=== PATIENT | male | born 1990 | race Caucasian/White ===

== ENCOUNTER → 2018-11-29 | Outpatient (REF) | payer BC ==
[2018-12-01 08:06] LABS: LDL DIRECT 67 mg/dL (0-99)
== END ==
LOC: M LAB REF 16:46
PROVIDERS: ATTEND Internal Medicine
DX: E78.00 Pure hypercholesterolemia, unspecified (principal)

== ENCOUNTER → 2019-09-15 | Outpatient (CLI) | payer BC ==
--- NOTE | 2019-09-19 08:55 | SLEEPHOME ---
DATE OF STUDY: 09/15/2019 ORDERED BY: JOEY Turner Diagnostic home sleep testing was performed due to concern for the obstructive sleep apnea syndrome in this patient with history of excessive somnolence and nonrestorative sleep. For testing a nocturnal T3 respiratory monitoring device was used. Continuous record was made of pulse, oxygen saturation, airflow, chest and abdominal strain, and body position. 9 hours and 59 minutes of data were reviewed. There were 6 hours and 48 minutes marked as time in bed. During the interval marked time in bed there were 51 respiratory events identified of 10 seconds in duration or greater for a respiratory event index of 7.5. The events were primarily obstructive. Baseline pulse rate 73, pulse rate ranged 56-104. Baseline saturation 93%, saturations fell to 88%. Testing was performed in both the supine and nonsupine positions. IMPRESSION: Abnormal home sleep testing with repetitive respiratory events and oxygen desaturations to 88% with a respiratory event index of 7.5 is consistent with the obstructive sleep apnea syndrome. RECOMMENDATIONS: The patient should be encouraged to undergo formal sleep evaluation. cc: Elías Caldwell Jr, MD
== END ==
LOC: M SLEEP HO 11:08
PROVIDERS: ATTEND Nurse Practitioner Family
DX: G47.33 Obstructive sleep apnea (adult) (pediatric) (principal)

== ENCOUNTER 2020-05-17 14:43 | Emergency (ER) | payer BC ==
[~2020-05-17] VITALS: Ht 185.4 cm; Wt 134.5 kg
[2020-05-17 14:44] VITALS: BP 142/94
[2020-05-17] MEDS ORDERED: LIDOCAINE 2% MDV 20ML VIAL As Ordered ONE (15:04)
[2020-05-17] MEDS ORDERED: LIDOCAINE 2% MDV 20ML VIAL SC ONE (15:15)
== END 2020-05-17 15:30 | disposition home or self-care (01) ==
LOC: M ED 14:43
DX: S61.211A Laceration without foreign body of left index finger without damage to nail, initial encounter (principal); Y92.9 Unspecified place or not applicable; Y93.9 Activity, unspecified; Y99.9 Unspecified external cause status

== ENCOUNTER → 2020-07-29 | Outpatient (REF) | payer BC ==
[2020-07-31 08:09] LABS: LDL DIRECT 146 mg/dL (0-99)
== END ==
LOC: M LAB REF 16:34
PROVIDERS: ATTEND Internal Medicine
DX: E78.00 Pure hypercholesterolemia, unspecified (principal)

== ENCOUNTER 2020-08-21 16:41 | Emergency (ER) | payer BC ==
[~2020-08-21] VITALS: Ht 188 cm; Wt 143.2 kg
[2020-08-21 16:41] VITALS: BP 157/101
[2020-08-21] MEDS ORDERED: BUPR150T3 (16:48)
[2020-08-21] MEDS ORDERED: MORPHINE 10 MG/ML 1ML VIAL (J2270) IM ONE (17:15)
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
[2020-08-21] MEDS ORDERED: MORPHINE 4 MG/ML 1ML VIAL/SYRINGE (J2270) IM ONE (18:30)
[2020-08-21] MEDS ORDERED: HYDR-3713 PO (18:56)
--- NOTE | 2020-08-21 19:19 | REP ---
INDICATION: post reduction first MC COMPARISON: None. TECHNIQUE: AP, lateral views of the right hand FINDINGS: Patient is status post satisfactory reduction at the 1st carpometacarpal joint. No obvious acute fracture is identified. IMPRESSION: Status post satisfactory reduction at the 1st carpometacarpal joint. <Electronically signed by Khoa Corbin > 08/21/20 [id number]
== END 2020-08-21 19:18 | disposition home or self-care (01) ==
LOC: M ED 16:41
DX: Z04.1 Encounter for examination and observation following transport accident (principal); S63.064A Dislocation of metacarpal (bone), proximal end of right hand, initial encounter; V49.40XA Driver injured in collision with unspecified motor vehicles in traffic accident, initial encounter; Y92.410 Unspecified street and highway as the place of occurrence of the external cause; Y93.89 Activity, other specified; Y99.8 Other external cause status; Z79.899 Other long term (current) drug therapy
CPT/HCPCS: 26641; 73110; 73120; 73130; 96372; 99282; J2270

== ENCOUNTER → 2021-12-31 | Outpatient (CLI) | payer OTHER ==
[~2021-12-31] MED LIST: BUPR150T12; HYDR-3713 PO
== END ==
LOC: M SLEEP HO 12:24
PROVIDERS: ATTEND Nurse Practitioner Family
DX: G47.9 Sleep disorder, unspecified (principal)

== ENCOUNTER → 2022-03-06 | Outpatient (CLI) | payer OTHER | LOC: M SLEEP 20:00 | PROVIDERS: ATTEND Nurse Practitioner Family | DX: G47.33 Obstructive sleep apnea (adult) (pediatric) (principal) ==

== ENCOUNTER → 2022-05-07 | Outpatient (CLI) | payer OTHER | LOC: M SLEEP 20:00 | PROVIDERS: ATTEND Nurse Practitioner Family | DX: G47.33 Obstructive sleep apnea (adult) (pediatric) (principal) ==

== ENCOUNTER → 2023-06-14 | Outpatient (REF) | payer OTHER ==
[2023-06-14 20:28] LABS: BASO # 0.1 10^3/uL (0.0-0.2); BASO % 0.7 % (0.0-1.0); EOS # 0.1 10^3/uL (0.0-0.5); EOS % 0.9 % (0.0-3.0); HEMATOCRIT 46.7 % (42.0-52.0); HEMOGLOBIN 15.4 g/dl (13.5-17.5); LYMPH # 2.3 10^3/uL (1.5-5.0); LYMPH % 25.4 % (24.0-44.0); MEAN CORPUSCULAR HEMOGLOBIN 28.9 pg (27.0-33.0); MEAN CORPUSCULAR VOLUME 87.6 fl (80.0-96.0); MONO # 1.1 10^3/uL (0.0-0.8); NEUTROPHILS # 5.5 10^3/uL (1.5-8.5); NEUTROPHILS % 60.8 % (36.0-66.0); PLATELET COUNT, AUTOMATED 195 10^3/uL (150-450); RED BLOOD COUNT 5.33 10^6/uL (4.30-6.10)
[2023-06-14 21:00] LABS: LIPASE 32 U/L (12-53)
[2023-06-14 21:03] LABS: ALBUMIN 4.2 G/DL (3.2-5.2); ALKALINE PHOSPHATASE 70 U/L (46-116); ALT/SGPT 36 U/L (7.0-40); AST/SGOT 26 U/L (<34); BILIRUBIN,TOTAL 1.2 MG/DL (0.3-1.2); BLOOD UREA NITROGEN 17 MG/DL (9-23); CALCIUM LEVEL 8.9 MG/DL (8.5-10.1); CARBON DIOXIDE LEVEL 29 MMOL/L (20-31); CHLORIDE LEVEL 104 MMOL/L (98-107); CREATININE FOR GFR 1.21 MG/DL (0.70-1.30); GLOMERULAR FILTRATION RATE > 60.0 (>60); GLUCOSE, FASTING 80 MG/DL (60-100); SODIUM LEVEL 140 MMOL/L (136-145); TOTAL PROTEIN 7.2 G/DL (5.7-8.2)
== END ==
LOC: M WUC 19:58
PROVIDERS: ATTEND Student in an Organized Health Care Education/Training Program
DX: R10.84 Generalized abdominal pain (principal)

== ENCOUNTER → 2023-06-22 | Outpatient (CLI) | payer OTHER ==
[~2023-06-22] MED LIST changes: +ISOVUE-370 76% 100ML VIAL As Ordered ONE
== END ==
LOC: M RAD 09:17
PROVIDERS: ATTEND Physician Assistant Medical
DX: R06.02 Shortness of breath (principal)

== ENCOUNTER → 2023-06-30 | Outpatient (REF) | payer OTHER ==
[~2023-06-30] MED LIST changes: -ISOVUE-370 76% 100ML VIAL As Ordered ONE
== END ==
LOC: M LAB REF 16:14
PROVIDERS: ATTEND Internal Medicine
DX: Z11.59 Encounter for screening for other viral diseases (principal)

== ENCOUNTER → 2023-07-01 | Outpatient (CLI) | payer OTHER | LOC: M CARPUL 14:07 | PROVIDERS: ATTEND Physician Assistant Medical | DX: R94.31 Abnormal electrocardiogram [ECG] [EKG] (principal) ==